=== PATIENT | female | born 1940 | race Caucasian/White ===

== ENCOUNTER 2022-12-22 18:48 | Emergency (ER) | payer OTHER ==
[~2022-12-22] VITALS: Ht 162 cm; Wt 62.0 kg
--- NOTE | 2022-12-22 19:03 | ED Lower Extremity ---
General Chief Complaint: Laceration Stated Complaint: LT HAND LAC; RT KNEE INJ Nursing Triage Note: Patient has presented to ER with cc of a fall on the steps and a small laceration at the base of her left thumb. History of Present Illness Date Seen by Provider: Dec 22, 2022 Time Seen by Provider: 18:55 Initial Comments 82-year-old female is here with a fall on the [place] steps that she was going upstairs. Patient is here with complaints of a left thumb laceration and left knee abrasion. No head strike or loss of consciousness. Patient is able to ambulate and bear weight. Allergies and Home Medications Allergies Coded Allergies: No Known Drug Allergies (Unverified , 12/22/22) Patient Home Medication List Home Medication List Reviewed: Yes Review of Systems Constitutional: no symptoms reported Musculoskeletal: see HPI Skin: see HPI Past Lhimotk-Jfscuk-Fqdhbv Hx Patient Social History Tobacco Use?: No Use of E-Cig and/or Vaping dev: No Substance use?: No Alcohol Use?: No Physical Exam Vital Signs Vital Signs - First Documented 12/22/22 18:57 Pulse 68 Resp 18 B/P (MAP) 162/90 (114) Pulse Ox 95 O2 Delivery Room Air Capillary Refill : Height, Weight, BMI Height: '" Weight: lbs. oz. 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 LEFT THUMB LACERATION/ LEFT KNEE ABRASION: - Two steri-strips and dermabond application with good wound apposition. No sutures since pt's skin is very delicate and fragile. - Wound care instructions given. - Follow up as needed - Tetanus shot within last 10 years -Patient has good mobility and unrestricted range of motion of the knee with mild abrasion without any bleeding. No need for x-ray at this time since patient is able to ambulate and bear weight on it without any issues. Departure Impression Primary Impression: Laceration of left thumb without complication Qualified Codes: S61.012A - Laceration without foreign body of left thumb without damage to nail, initial encounter Additional Impression: Abrasion, left knee, initial encounter Disposition: 01 HOME, SELF-CARE Condition: Improved Departure-Patient Inst. Referrals: NO,LOCAL PHYSICIAN (PCP/Family) Primary Care Physician Patient Instructions: Laceration Repair With Glue ED, Skin Abrasions (DC) Add. Discharge Instructions: - Wound care instructions given. All discharge instructions reviewed with patient and/or family. Voiced understanding. XANDER RADER MD Dec 22, 2022 19:03
[2022-12-22 19:25] VITALS: BP 162/90
== END 2022-12-22 19:27 | disposition home or self-care (01) ==
LOC: ER FS 18:50
DX: S61.012A Laceration without foreign body of left thumb without damage to nail, initial encounter (principal); S80.212A Abrasion, left knee, initial encounter; W10.8XXD Fall (on) (from) other stairs and steps, subsequent encounter